=== PATIENT | male | born 1980 | race Caucasian/White ===

== ENCOUNTER 2020-10-03 00:46 | Emergency (ER) | payer SELFPAY ==
[~2020-10-03] VITALS: Ht 182.9 cm; Wt 103.3 kg
--- NOTE | 2020-10-03 00:48 | NUR ---
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
[2020-10-03 00:53] VITALS: BP 137/85
--- NOTE | 2020-10-03 01:08 | NUR ---
CC OF LOWER RT LEG REDNESS AND SWELLING "FOR A FEW DAYS". PT STATES HE HAS BEEN MOVING BOXES IN [place] FULL OF SPIDERS AND THINKS IT COULD BE A SPIDER BITE, BUT ALSO STATES "I AM AN IV DRUG USER. I HAVE NEVER SHOT UP IN MY LEGS BUT I HEARD SOMETIMES INFECTIONS CAN MOVE DOWN MY BODY".
--- NOTE | 2020-10-03 01:11 | NUR ---
REPORT GIVEN TO [facility]
[2020-10-03] MEDS ORDERED: SULFAMETH./TRIMETHOPRIM DS 800MG/160MG TABLET PO ONE (01:30)
[2020-10-03] MEDS ORDERED: CEPHALEXIN 500 MG CAPSULE PO ONE (01:30)
[2020-10-03] MEDS ORDERED: CEPHALEXIN 500 MG CAPSULE ONE (01:40)
[2020-10-03] MEDS ORDERED: SULFAMETH./TRIMETHOPRIM DS 800MG/160MG TABLET ONE (01:40)
== END 2020-10-03 02:17 | disposition home or self-care (01) ==
LOC: ED 01:00
DX: L03.115 Cellulitis of right lower limb (principal)
CPT/HCPCS: 99283

== ENCOUNTER 2020-10-21 03:16 | Emergency (ER) | payer SELFPAY ==
[~2020-10-21] VITALS: Ht 182.9 cm; Wt 103.1 kg
[2020-10-21 03:20] VITALS: BP 143/102
== END 2020-10-21 04:00 | disposition home or self-care (01) ==
LOC: ED 03:50
DX: L03.115 Cellulitis of right lower limb (principal)
CPT/HCPCS: 99283